=== PATIENT | male | born 1960 | race Asian ===

== ENCOUNTER 2017-05-17 16:11 | Inpatient (IN) | payer OTHER ==
[~2017-05-17] VITALS: Ht 180.3 cm; Wt 112.5 kg
[2017-05-17 17:26] LABS: BASOPHILS % (AUTO) 0.5 % (0.0-2.0); EOSINOPHILS # (AUTO) 0.2 /CMM (0.0-0.7); EOSINOPHILS % (AUTO) 2.8 % (0.0-6.0); HEMATOCRIT 50 % (39-51); HEMOGLOBIN 16.6 g/dL (13.5-17.5); LYMPHOCYTES # (AUTO) 1.5 /CMM (0.8-4.8); LYMPHOCYTES % (AUTO) 20.1 % (20.0-44.0); MEAN CORPUSCULAR HEMOGLOBIN 30 PG (26.0-33.0); MEAN CORPUSCULAR HGB CONC 33 g/dl (31.0-36.0); MEAN CORPUSCULAR VOLUME 92 fL (80-96); MONOCYTES # (AUTO) 0.9 /CMM (0.1-1.30); MONOCYTES % (AUTO) 11.9 % (2.0-12.0); NEUTROPHILS # (AUTO) 4.7 /CMM (1.8-8.9); NEUTROPHILS % (AUTO) 64.7 % (43.0-81.0); PLATELET COUNT (AUTO) 286 /CMM (150-450); RDW COEFFICIENT OF VARIATION 14.4 (11.5-15.0); RED BLOOD CELL COUNT(AUTO) 5.48 MIL/uL (4.5-6.0); WHITE BLOOD COUNT (AUTO) 7.3 K/uL (4.3-11.0)
[2017-05-17 17:47] LABS: CALCIUM, SERUM 8.6 mg/dL (8.5-10.1); CREATININE 1.4 mg/dL (0.6-1.3); TROPONIN I 0.365 ng/mL (0.00-0.056)
[2017-05-17 17:52] LABS: ALBUMIN 3.1 g/dL (3.4-5.0); BILIRUBIN,DIRECT 0.1 mg/dL (0.0-0.2); BILIRUBIN,TOTAL 0.8 mg/dL (0.2-1.0); TOTAL PROTEIN, SERUM 6.9 g/dL (6.4-8.2)
[2017-05-17 17:56] LABS: INR 2.17 (0.87-1.13); PROTHROMBIN TIME 22.7 SECS (9.5-12.7)
[2017-05-17] MEDS ORDERED: ASPIRIN 325 MG TABLET PO ONE (18:30)
[2017-05-17] MEDS ORDERED: FUROSEMIDE 20 MG/2 ML VIAL IV ONE (18:30)
[2017-05-17] MEDS ORDERED: FUROSEMIDE 20 MG/2 ML VIAL ONE (18:44)
[2017-05-17] MEDS ORDERED: ASPIRIN 325 MG TABLET ONE (18:44)
[2017-05-17] MEDS ORDERED: ASPI-1169 PO (18:47)
[2017-05-17] MEDS ORDERED: LEVO50TA8 PO (18:47)
[2017-05-17] MEDS ORDERED: WARF5TAB77 PO (18:47)
[2017-05-17] MEDS ORDERED: GLIM4TAB2 PO (18:47)
[2017-05-17] MEDS ORDERED: FURO20TA4 PO (18:47)
[2017-05-17] MEDS ORDERED: DIGO250T PO (18:47)
[2017-05-17] MEDS ORDERED: METF10002 PO (18:47)
[2017-05-17] MEDS ORDERED: OMEG1CAP55 PO (18:47)
[2017-05-17] MEDS ORDERED: SITA100T PO (18:47)
[2017-05-17] MEDS ORDERED: INSU100V7 SQ (18:47)
[2017-05-17] MEDS ORDERED: DAPA10TA PO (18:47)
[2017-05-17] MEDS ORDERED: VERA180T25 PO (18:47)
[2017-05-17] MEDS ORDERED: CARV25TA2 PO (18:47)
[2017-05-17] MEDS ORDERED: MULT1TAB73 PO (18:47)
[2017-05-17] MEDS ORDERED: LISI40TA4 PO (18:47)
[2017-05-17] MEDS ORDERED: MAGNESIUM HYDROXIDE 30 ML UDC PO PRN (20:00)
[2017-05-17] MEDS ORDERED: ZOLPIDEM TARTRATE 5 MG TABLET PO PRN (20:00)
[2017-05-17] MEDS ORDERED: ACETAMINOPHEN 325 MG TABLET PO PRN (20:00)
[2017-05-17] MEDS ORDERED: ONDANSETRON HCL/PF 4 MG/2 ML VIAL IVP PRN (20:00)
[2017-05-17] MEDS ORDERED: MAG HYDROX/AL HYDROX/SIMETH 30 ML UDC PO PRN (20:00)
[2017-05-17] MEDS ORDERED: DEXTROSE 50%-WATER 50 ML DISP.SYRIN IV PRN (20:00)
[2017-05-17] MEDS ORDERED: HYDROCODONE/APAP 10/325MG 1 EA TABLET PO PRN (20:00)
[2017-05-17] MEDS ORDERED: Z GUARD REMEDY 2 OZ OINT TP PRN (20:00)
[2017-05-17] MEDS ORDERED: HYDROCODONE/APAP 5/325MG 1 EACH TABLET PO PRN (20:00)
[2017-05-17 20:30] VITALS: BP 148/94
[2017-05-17] MEDS ORDERED: MORPHINE SULFATE INJ 4 MG/ML DISP.SYRIN IV PRN (21:00)
[2017-05-17] MEDS: FUROSEMIDE 40 MG/4 ML VIAL IV SCH (21:19)
[2017-05-17] MEDS: CARVEDILOL 12.5 MG TABLET PO SCH (21:20)
[2017-05-17] MEDS: NITROGLYCERIN PACKET 1 GM PACKET TOP SCH (21:21)
[2017-05-17] MEDS: BLOOD SUGAR DIAGNOSTIC 1 EACH STRIP VI SCH (22:21)
[2017-05-18] VITALS: BP 134/90
[2017-05-18 04:00] VITALS: BP 137/94
[2017-05-18] MEDS: NITROGLYCERIN PACKET 1 GM PACKET TOP SCH ×4 (05:08→22:18)
[2017-05-18 06:39] LABS: BASOPHILS % (AUTO) 0.3 % (0.0-2.0); EOSINOPHILS # (AUTO) 0.2 /CMM (0.0-0.7); EOSINOPHILS % (AUTO) 3.3 % (0.0-6.0); HEMATOCRIT 48 % (39-51); HEMOGLOBIN 16.1 g/dL (13.5-17.5); LYMPHOCYTES # (AUTO) 1.5 /CMM (0.8-4.8); LYMPHOCYTES % (AUTO) 23.7 % (20.0-44.0); MEAN CORPUSCULAR HEMOGLOBIN 31 PG (26.0-33.0); MEAN CORPUSCULAR HGB CONC 34 g/dl (31.0-36.0); MEAN CORPUSCULAR VOLUME 91 fL (80-96); MONOCYTES # (AUTO) 0.7 /CMM (0.1-1.30); MONOCYTES % (AUTO) 11.3 % (2.0-12.0); NEUTROPHILS # (AUTO) 4.1 /CMM (1.8-8.9); NEUTROPHILS % (AUTO) 61.4 % (43.0-81.0); PLATELET COUNT (AUTO) 293 /CMM (150-450); RED BLOOD CELL COUNT(AUTO) 5.28 MIL/uL (4.5-6.0); WHITE BLOOD COUNT (AUTO) 6.5 K/uL (4.3-11.0)
[2017-05-18 07:15] LABS: INR 2.61 (0.87-1.13); PROTHROMBIN TIME 27.4 SECS (9.5-12.7)
[2017-05-18 07:24] LABS: CALCIUM, SERUM 8.7 mg/dL (8.5-10.1); CREATININE 1.3 mg/dL (0.6-1.3); MAGNESIUM 1.9 mg/dL (1.8-2.4); PHOSPHORUS 4.1 mg/dL (2.5-4.9); POTASSIUM 3.7 mmol/L (3.5-5.1)
[2017-05-18] MEDS: BLOOD SUGAR DIAGNOSTIC 1 EACH STRIP VI SCH ×4 (07:35→22:22)
[2017-05-18 08:00] VITALS: BP 133/92
[2017-05-18] MEDS ORDERED: DIGOXIN 0.25 MG TABLET PO SCH (09:00)
[2017-05-18] MEDS ORDERED: Medication Not On Formulary EA (Omega-3 Acid Ethyl Esters (Lovaza) 2 GM) PO SCH (09:00)
[2017-05-18] MEDS: LEVOTHYROXINE SODIUM 50 MCG TABLET PO SCH (09:36)
[2017-05-18] MEDS: DOCUSATE SODIUM 100 MG CAPSULE PO SCH ×2 (09:36→17:00)
[2017-05-18] MEDS: MULTIVITAMINS,THERAGRAN 1 UDTAB TABLET PO SCH (09:36)
[2017-05-18] MEDS: ASPIRIN 81 MG TAB.CHEW PO SCH (09:36)
[2017-05-18] MEDS: LISINOPRIL (20MG) 20 MG TABLET PO SCH (09:37)
[2017-05-18] MEDS: FUROSEMIDE 40 MG/4 ML VIAL IV SCH ×2 (09:37→22:07)
[2017-05-18] MEDS: CARVEDILOL 12.5 MG TABLET PO SCH ×2 (09:37→22:17)
[2017-05-18] MEDS: PANTOPRAZOLE 40 MG TABLET.DR PO SCH (09:37)
[2017-05-18 12:00] VITALS: BP 126/98
[2017-05-18] MEDS: VERAPAMIL SR 180 MG TABLET.SA PO SCH (12:19)
[2017-05-18 16:03] VITALS: BP 128/93
[2017-05-18] MEDS ORDERED: WARFARIN SODIUM 5 MG TABLET PO SCH (17:00)
[2017-05-18] MEDS: INSULIN REGULAR, HUMAN 100 UNIT/ML 3 ML VIAL SQ PRN (17:44)
[2017-05-18 20:00] VITALS: BP 142/104
[2017-05-18] MEDS: ATORVASTATIN 10 MG TABLET PO SCH (22:16)
[2017-05-18] MEDS: *INSULIN REGULAR(HUMULIN R)HUM 100 UNIT/ML VIAL SQ PRN (22:28)
[2017-05-19] VITALS: BP 142/85
[2017-05-19 04:00] VITALS: BP_SYST 124; BP_SYST 128; BP_DIAS 78
[2017-05-19] MEDS: NITROGLYCERIN PACKET 1 GM PACKET TOP SCH ×3 (04:42→21:06)
[2017-05-19] MEDS: BLOOD SUGAR DIAGNOSTIC 1 EACH STRIP VI SCH ×4 (05:48→21:21)
[2017-05-19] MEDS: INSULIN REGULAR, HUMAN 100 UNIT/ML 3 ML VIAL SQ PRN ×3 (05:58→17:35)
[2017-05-19 08:00] VITALS: BP 143/85
[2017-05-19] MEDS: DOCUSATE SODIUM 100 MG CAPSULE PO SCH ×2 (10:14→17:00)
[2017-05-19] MEDS: PANTOPRAZOLE 40 MG TABLET.DR PO SCH (10:14)
[2017-05-19] MEDS: LEVOTHYROXINE SODIUM 50 MCG TABLET PO SCH (10:14)
[2017-05-19] MEDS: ASPIRIN 81 MG TAB.CHEW PO SCH (10:15)
[2017-05-19] MEDS: FUROSEMIDE 40 MG/4 ML VIAL IV SCH ×2 (10:16→21:02)
[2017-05-19] MEDS: CARVEDILOL 12.5 MG TABLET PO SCH ×2 (10:17→21:00)
[2017-05-19] MEDS: LISINOPRIL (20MG) 20 MG TABLET PO SCH (10:18)
[2017-05-19] MEDS: VERAPAMIL SR 180 MG TABLET.SA PO SCH (10:25)
[2017-05-19] MEDS: MULTIVITAMINS,THERAGRAN 1 UDTAB TABLET PO SCH (10:25)
[2017-05-19] MEDS ORDERED: DIGOXIN INJ 0.5 MG/2 ML AMPUL IV ONE (10:30)
[2017-05-19 16:01] VITALS: BP 146/80
[2017-05-19] MEDS ORDERED: WARFARIN SODIUM 5 MG TABLET PO SCH (17:00)
[2017-05-19 20:39] VITALS: BP 127/79
[2017-05-19] MEDS: ATORVASTATIN 10 MG TABLET PO SCH (21:21)
[2017-05-19] MEDS: *INSULIN REGULAR(HUMULIN R)HUM 100 UNIT/ML VIAL SQ PRN (21:22)
[2017-05-20 05:00] VITALS: BP 150/116
[2017-05-20] MEDS: NITROGLYCERIN PACKET 1 GM PACKET TOP SCH ×2 (05:17→13:29)
[2017-05-20] MEDS: BLOOD SUGAR DIAGNOSTIC 1 EACH STRIP VI SCH ×2 (06:32→12:09)
[2017-05-20] MEDS: PANTOPRAZOLE 40 MG TABLET.DR PO SCH (06:32)
[2017-05-20] MEDS: LEVOTHYROXINE SODIUM 50 MCG TABLET PO SCH (06:32)
[2017-05-20] MEDS: INSULIN REGULAR, HUMAN 100 UNIT/ML 3 ML VIAL SQ PRN ×2 (06:39→12:11)
[2017-05-20 08:00] VITALS: BP 151/99
[2017-05-20 08:10] LABS: INR 2.39 (0.87-1.13); PROTHROMBIN TIME 25.1 SECS (9.5-12.7)
[2017-05-20] MEDS: ASPIRIN 81 MG TAB.CHEW PO SCH (10:29)
[2017-05-20] MEDS: CARVEDILOL 12.5 MG TABLET PO SCH (10:31)
[2017-05-20] MEDS: MULTIVITAMINS,THERAGRAN 1 UDTAB TABLET PO SCH (10:31)
[2017-05-20] MEDS: VERAPAMIL SR 180 MG TABLET.SA PO SCH (10:32)
[2017-05-20] MEDS: DOCUSATE SODIUM 100 MG CAPSULE PO SCH (10:32)
[2017-05-20] MEDS: LISINOPRIL (20MG) 20 MG TABLET PO SCH (10:32)
[2017-05-20] MEDS: FUROSEMIDE 40 MG/4 ML VIAL IV SCH (10:33)
[2017-05-20] MEDS ORDERED: ATOR10TA PO (12:26)
[2017-05-20] MEDS ORDERED: FURO20TA4 PO (12:26)
[2017-05-20] MEDS ORDERED: DIGOXIN 0.25 MG TABLET PO SCH (13:00)
[2017-05-20 13:29] VITALS: BP 138/89
== END 2017-05-20 15:00 | disposition home or self-care (01) | DRG 194 ==
LOC: ER 16:15 → TELE 20:14 → MED 05-19 17:24
PROVIDERS: ADMIT Internal Medicine; ATTEND Internal Medicine
DX: I11.0 Hypertensive heart disease with heart failure (principal); J96.01 Acute respiratory failure with hypoxia; I21.4 Non-ST elevation (NSTEMI) myocardial infarction; Z79.899 Other long term (current) drug therapy; I50.23 Acute on chronic systolic (congestive) heart failure; Z86.73 Personal history of transient ischemic attack (TIA), and cerebral infarction without residual deficits; Z79.84 Long term (current) use of oral hypoglycemic drugs; Z79.82 Long term (current) use of aspirin; Z79.01 Long term (current) use of anticoagulants; I25.2 Old myocardial infarction; I42.9 Cardiomyopathy, unspecified; E11.9 Type 2 diabetes mellitus without complications; E66.9 Obesity, unspecified; Z68.34 Body mass index [BMI] 34.0-34.9, adult; E03.9 Hypothyroidism, unspecified; I48.0 Paroxysmal atrial fibrillation
CPT/HCPCS: 36415; 71045; 80048-TC; 80061-TC; 80076-TC; 80162-TC; 82962-TC; 83735-TC; 83880; 84100-TC; 84484-TC; 85025-TC; 85610-TC; 85730-TC; 87081-TC; A4606; J1160; J1815; J1940; Z7610

== ENCOUNTER 2021-05-14 18:37 | Emergency (ER) | payer OTHER ==
[~2021-05-14] VITALS: Ht 180.3 cm; Wt 97.5 kg
[~2021-05-14 18:37] MED LIST: ASPI-1169 PO; ATOR10TA PO; CARV25TA2 PO; DAPA10TA PO; DIGO250T PO; FURO20TA4 PO; GLIM4TAB37 PO; INSU100V7 SQ; LEVO50TA8 PO; LISI40TA13 PO; METF-442 PO; MULT-754 PO; OMEG1CAP55 PO; SITA100T PO; VERA180T25 PO; WARF5TAB PO
--- NOTE | 2021-05-14 20:15 | NUR ---
BIBWIFE C/O INSECT BITE A FEW NIGHTS AGO ON LEFT THIGH. HX OF DIABETES. CHANGED INTO A GOWN AND PLACED ON MONITOR. BREATHING EVEN AND UNLABORED ALL V/S STABLE.
[2021-05-14] MEDS ORDERED: DOXY100T2 PO (21:25)
--- NOTE | 2021-05-14 21:34 | NUR ---
Patient discharged to home in stable condition. Written and verbal after care instructions given. Patient verbalizes understanding of instruction.
[2021-05-14 21:53] VITALS: BP 147/87
== END 2021-05-14 21:53 | disposition home or self-care (01) ==
LOC: ER 18:45
DX: L03.116 Cellulitis of left lower limb (principal); E11.65 Type 2 diabetes mellitus with hyperglycemia; I11.0 Hypertensive heart disease with heart failure; I48.91 Unspecified atrial fibrillation; I25.2 Old myocardial infarction; Z79.01 Long term (current) use of anticoagulants; Z79.4 Long term (current) use of insulin; Z79.82 Long term (current) use of aspirin; Z79.2 Long term (current) use of antibiotics; Z79.899 Other long term (current) drug therapy
CPT/HCPCS: 82962-TC

== ENCOUNTER 2024-02-25 09:08 | Inpatient (IN) | payer OTHER ==
[2024-02-25] VITALS (40 sets, daily range): BP systolic 67–120; BP diastolic 50–77; TEMP 98.1–98.8; O2SAT 91–100
[~2024-02-25] VITALS: Ht 180.3 cm; Wt 113.4 kg
[~2024-02-25 09:08] MED LIST changes: +DOXY100T2 PO
[2024-02-25 09:32] LABS: BASOPHILS % (AUTO) 0.2 % (0.0-2.0); EOSINOPHILS # (AUTO) 0.3 K/uL (0.0-0.7); HEMATOCRIT 39 % (39-51); HEMOGLOBIN 12.7 g/dL (13.5-17.5); LYMPHOCYTES # (AUTO) 0.1 K/uL (0.8-4.8); LYMPHOCYTES % (AUTO) 0.7 % (20.0-44.0); MEAN CORPUSCULAR HEMOGLOBIN 29 PG (26.0-33.0); MEAN CORPUSCULAR HGB CONC 33 g/dl (31.0-36.0); MEAN CORPUSCULAR VOLUME 89 fL (80-96); MONOCYTES # (AUTO) 0.3 K/uL (0.1-1.30); MONOCYTES % (AUTO) 1.8 % (2.0-12.0); NEUTROPHILS # (AUTO) 13.7 K/uL (1.8-8.9); NEUTROPHILS % (AUTO) 95.3 % (43.0-81.0); PLATELET COUNT (AUTO) 196 K/uL (150-450); RED BLOOD CELL COUNT(AUTO) 4.35 MIL/uL (4.5-6.0); RED CELL DISTRIBUTION WIDTH 15.9 % (11.5-15.0); WHITE BLOOD COUNT (AUTO) 14.4 K/uL (4.3-11.0)
[2024-02-25] MEDS: IV NS 0.9% 1,000 ML BAG IV ONE (09:33)
[2024-02-25] MEDS: CEFEPIME 1 GM in IV D5W 50 ML IV ONE (09:42)
[2024-02-25] MEDS ORDERED: DILTIAZEM HCL 50 MG IV ONE (09:47)
[2024-02-25] MEDS ORDERED: Magnesium 1GM/D5W 100ML PREMIX 200 ML IV ONE (09:47)
[2024-02-25] MEDS ORDERED: ACETAMINOPHEN 650 MG/SUPP.RECT RC ONE (09:47)
[2024-02-25 09:49] LABS: ALANINE AMINOTRANSFERASE 102 U/L (12-78); ALBUMIN 2.3 g/dL (3.4-5.0); ALKALINE PHOSPHATASE 291 U/L (46-116); ASPARTATE AMINOTRANSFERASE 111 U/L (15-37); BILIRUBIN,DIRECT 1.1 mg/dL (0.0-0.2); BILIRUBIN,TOTAL 1.4 mg/dL (0.2-1.0); CALCIUM, SERUM 8.2 mg/dL (8.5-10.1); CARBON DIOXIDE 18 mmol/L (21-32); CHLORIDE 92 mmol/L (98-107); CREATININE 5.7 mg/dL (0.6-1.3); GLUCOSE 266 mg/dL (74-106); POTASSIUM 4.7 mmol/L (3.5-5.1); SODIUM SERUM 127 mmol/L (136-145); TOTAL PROTEIN, SERUM 6.5 g/dL (6.4-8.2)
[2024-02-25 09:52] LABS: UREA NITROGEN, BLOOD 119 mg/dL (7-18)
[2024-02-25] MEDS: DILTIAZEM HCL 50 MG IV IV ONE (09:53)
[2024-02-25 09:55] LABS: LACTIC ACID 2.5 mmol/L (0.4-2.0)
[2024-02-25] MEDS: ACETAMINOPHEN 120 MG/SUPP.RECT RC ONE (09:55)
[2024-02-25 10:10] LABS: PARTIAL THROMBOPLASTIN TIME 61.8 SEC (24.3-34.3); PROTHROMBIN TIME > 100.0 SECS (9.2-11.1)
[2024-02-25] MEDS: Magnesium 1GM/D5W 100ML PREMIX 200 ML IV ONE (10:10)
[2024-02-25] MEDS: ACETAMINOPHEN ES 500 MG TABLET PO ONE (10:13)
[2024-02-25 10:14] LABS: ABG BASE EXCESS -10.9 mmol/L (-2.0-3.0); ABG OXYGEN SATURATION 92.8 % (94.0-98.0); ABG PCO2 19.6 mmHg (35.0-48.0); ABG PH 7.394 (7.350-7.450); ABG TOTAL HEMOGLOBIN 12.4 G/dL (13.5-17.5); COHb 0.3 % (0.5-1.5); MetHb 0.2 % (0.0-1.5); O2Hb 92.3 % (94.0-97.0); SITE, ABG RIGHT RADIAL
[2024-02-25] MEDS: VANCOMYCIN 1 GM in IV D5W 250 ML IV ONE (10:20)
[2024-02-25] MEDS ORDERED: NOREPINEPHRINE 8 MG in IV NS 0.9% 250 ML IV ONE (11:30)
[2024-02-25] MEDS ORDERED: AMIODARONE 150 MG/3 ML VIAL IV ONE (11:30)
[2024-02-25] MEDS: NOREPINEPHRINE 8 MG in IV NS 0.9% 242 ML IV ONE (11:55)
[2024-02-25] MEDS: AMIODARONE 150 MG in IV D5W 100 ML IV ONE (12:02)
[2024-02-25] MEDS: AMIODARONE 450 MG in IV D5W 241 ML IV PRN ×2 (12:15→15:37)
[2024-02-25] MEDS ORDERED: PHENYLEPHRINE 100 MG in IV NS 0.9% 240 ML IV PRN (12:30)
[2024-02-25] MEDS ORDERED: IV NS 0.9% 1,000 ML IV PRN (12:30)
[2024-02-25] MEDS ORDERED: ONDANSETRON HCL/PF 4 MG/2 ML VIAL IVP PRN (12:30)
[2024-02-25] MEDS: PHYTONADIONE IV ONE (13:15)
[2024-02-25] MEDS: NS 0.9% IV ONE (13:15)
[2024-02-25] MEDS ORDERED: KETO15CR2 TP (13:39)
[2024-02-25] MEDS ORDERED: ATOR80TA PO (13:39)
[2024-02-25] MEDS ORDERED: ICOS1CAP PO (13:39)
[2024-02-25] MEDS ORDERED: SACU1TAB4 PO (13:39)
[2024-02-25] MEDS ORDERED: FENO134C PO (13:39)
[2024-02-25] MEDS ORDERED: INSU100V39 SQ (13:39)
[2024-02-25] MEDS ORDERED: LATA5DRO EACHEYE (13:39)
[2024-02-25] MEDS ORDERED: MULT-225 PO (13:39)
[2024-02-25] MEDS ORDERED: FURO-144 PO (13:39)
[2024-02-25] MEDS ORDERED: SEMA1PEN SQ (13:39)
[2024-02-25] MEDS ORDERED: GABA-532 PO (13:39)
[2024-02-25] MEDS ORDERED: DORZ10DR11 EACHEYE (13:39)
[2024-02-25] MEDS ORDERED: ERTU15TA PO (13:39)
[2024-02-25] MEDS ORDERED: INSU100I40 SQ (13:39)
[2024-02-25] MEDS ORDERED: DEXTROSE 50%-WATER 50 ML DISP.SYRIN IV PRN ×2 (15:00→21:30)
[2024-02-25] MEDS: NOREPINEPHRINE 8 MG in IV D5W 242 ML IV PRN (15:22)
[2024-02-25] MEDS: ACETAMINOPHEN 325 MG TABLET PO PRN (15:27)
[2024-02-25 16:10] LABS: CALCIUM, SERUM 7.4 mg/dL (8.5-10.1); CREATININE 5.2 mg/dL (0.6-1.3); POTASSIUM 4.4 mmol/L (3.5-5.1)
[2024-02-25] MEDS ORDERED: FUROSEMIDE 100 MG/10 ML VIAL IV ONE (17:00)
[2024-02-25] MEDS: FUROSEMIDE 40 MG/4 ML VIAL IV ONE (17:42)
[2024-02-25] MEDS: BLOOD SUGAR DIAGNOSTIC 1 EACH STRIP IN SCH (17:52)
[2024-02-25] MEDS: INSULIN REGULAR, HUMAN 100 UNIT/ML 3 ML VIAL SQ PRN (17:52)
[2024-02-25] MEDS: Sodium Bicarbonate 100 MEQ in IV NS 0.9% 1,000 ML IV SCH (18:07)
[2024-02-25] MEDS: NOREPINEPHRINE 32 MG in IV NS 0.9% 250 ML IV PRN (19:41)
[2024-02-25] MEDS: CEFEPIME 1 GM in IV D5W 50 ML IV SCH (22:00)
[2024-02-25] MEDS: BLOOD SUGAR DIAGNOSTIC 1 EACH STRIP VI SCH (22:42)
[2024-02-25] MEDS: *INSULIN REGULAR(HUMULIN R)HUM 100 UNIT/ML VIAL SQ PRN (22:55)
[2024-02-25 23:21] LABS: URINE TOTAL PROTEIN 392.4 mg/dL (0-11.9)
[2024-02-25 23:56] LABS: APPEARANCE,URINE CLOUDY (CLEAR); COLOR,URINE BROWN (YELLOW)
[2024-02-25 23:58] LABS: PROTEIN,URINE 1+ mg/dl (NEGATIVE)
[2024-02-25 23:59] LABS: BILIRUBIN,URINE SMALL (NEGATIVE); BLOOD, URINE LARGE Ery/uL (NEGATIVE); KETONES,URINE TRACE mg/dL (NEGATIVE); LEUKOCYTE ESTERASE ,URINE TRACE (NEGATIVE); NITRITE, URINE NEGATIVE (NEGATIVE); UGLUCOSE 250 MG/DL mg/dL (NEGATIVE)
[2024-02-26] VITALS (95 sets, daily range): BP systolic 68–146; BP diastolic 46–117; TEMP 98.1–98.7; O2SAT 95–100
[2024-02-26 00:06] LABS: ADD URINE CULTURE YES; BACTERIA,URINE 2+ /HPF (None Seen); MUCUS,URINE Moderate /LPF (None Seen); RBC,URINE TOO NUMEROUS TO COUN /HPF (0-2); SQUAMOUS EPITHELIAL CELL,UR None Seen /HPF (None Seen)
[2024-02-26 05:25] LABS: BASOPHILS # (AUTO) 0.1 K/uL (0.0-0.2); BASOPHILS % (AUTO) 0.3 % (0.0-2.0); EOSINOPHILS # (AUTO) 0.8 K/uL (0.0-0.7); EOSINOPHILS % (AUTO) 3.4 % (0.0-6.0); HEMATOCRIT 35 % (39-51); HEMOGLOBIN 11.6 g/dL (13.5-17.5); LYMPHOCYTES # (AUTO) 0.1 K/uL (0.8-4.8); LYMPHOCYTES % (AUTO) 0.6 % (20.0-44.0); MEAN CORPUSCULAR HEMOGLOBIN 30 PG (26.0-33.0); MEAN CORPUSCULAR HGB CONC 33 g/dl (31.0-36.0); MEAN CORPUSCULAR VOLUME 89 fL (80-96); MONOCYTES # (AUTO) 1.2 K/uL (0.1-1.30); MONOCYTES % (AUTO) 5.2 % (2.0-12.0); NEUTROPHILS # (AUTO) 20.8 K/uL (1.8-8.9); NEUTROPHILS % (AUTO) 90.5 % (43.0-81.0); PLATELET COUNT (AUTO) 175 K/uL (150-450); RED BLOOD CELL COUNT(AUTO) 3.92 MIL/uL (4.5-6.0); RED CELL DISTRIBUTION WIDTH 15.9 % (11.5-15.0)
[2024-02-26 05:29] LABS: INR 1.46 (0.91-1.10); PARTIAL THROMBOPLASTIN TIME 39.4 SEC (24.3-34.3); PROTHROMBIN TIME 15.1 SECS (9.2-11.1)
[2024-02-26 05:56] LABS: ALBUMIN 1.9 g/dL (3.4-5.0); BILIRUBIN,TOTAL 1.3 mg/dL (0.2-1.0); CALCIUM, SERUM 7.7 mg/dL (8.5-10.1); MAGNESIUM 2.8 mg/dL (1.8-2.4); PHOSPHORUS 4.2 mg/dL (2.5-4.9); POTASSIUM 4.1 mmol/L (3.5-5.1); TOTAL PROTEIN, SERUM 5.9 g/dL (6.4-8.2)
[2024-02-26 06:07] LABS: MONOCYTES % (MANUAL) 2 % (0-11.0); NEUTROPHILS % (MANUAL) 98 (42-76)
[2024-02-26 06:08] LABS: PLATELET ESTIMATE ADEQU
[2024-02-26] MEDS: INSULIN REGULAR, HUMAN 100 UNIT/ML 3 ML VIAL SQ PRN (07:47)
[2024-02-26] MEDS: MULTIVIT W/MINERALS 1 TAB TABLET PO SCH (12:43)
[2024-02-26] MEDS: WARFARIN SODIUM 5 MG TABLET PO SCH (16:50)
[2024-02-26] MEDS: LATANOPROST EYE DROP 0.005% 2.5 ML BOTTLE EACHEYE SCH (21:01)
[2024-02-26] MEDS: ATORVASTATIN 40 MG TABLET PO SCH (22:29)
[2024-02-27] VITALS (63 sets, daily range): BP systolic 87–157; BP diastolic 49–116; TEMP 98.1–101.2; O2SAT 93–100
[2024-02-27 05:20] LABS: INR 1.47 (0.91-1.10); PARTIAL THROMBOPLASTIN TIME 33.6 SEC (24.3-34.3); PROTHROMBIN TIME 15.2 SECS (9.2-11.1)
[2024-02-27 06:07] LABS: PTH, INTACT 76 pg/mL (15-65)
[2024-02-27] MEDS: FENOFIBRATE NANOCRYS (145 MG) 145 MG TABLET PO SCH (08:28)
[2024-02-27] MEDS: TIMOLOL MAL/DORZOLAM HCL OPHTH 10 ML BOTTLE EACHEYE SCH (08:31)
[2024-02-27 08:57] LABS: BASOPHILS % (AUTO) 0.2 % (0.0-2.0); EOSINOPHILS # (AUTO) 0.2 K/uL (0.0-0.7); EOSINOPHILS % (AUTO) 0.8 % (0.0-6.0); HEMATOCRIT 34 % (39-51); HEMOGLOBIN 11.2 g/dL (13.5-17.5); LYMPHOCYTES # (AUTO) 0.4 K/uL (0.8-4.8); LYMPHOCYTES % (AUTO) 1.8 % (20.0-44.0); MEAN CORPUSCULAR HEMOGLOBIN 29 PG (26.0-33.0); MEAN CORPUSCULAR HGB CONC 33 g/dl (31.0-36.0); MEAN CORPUSCULAR VOLUME 88 fL (80-96); MONOCYTES # (AUTO) 1.9 K/uL (0.1-1.30); MONOCYTES % (AUTO) 9.1 % (2.0-12.0); NEUTROPHILS # (AUTO) 18.6 K/uL (1.8-8.9); NEUTROPHILS % (AUTO) 88.1 % (43.0-81.0); PLATELET COUNT (AUTO) 158 K/uL (150-450); RED BLOOD CELL COUNT(AUTO) 3.84 MIL/uL (4.5-6.0); RED CELL DISTRIBUTION WIDTH 16.1 % (11.5-15.0); WHITE BLOOD COUNT (AUTO) 21.2 K/uL (4.3-11.0)
[2024-02-27 09:07] LABS: ALBUMIN 1.6 g/dL (3.4-5.0); BILIRUBIN,TOTAL 1.3 mg/dL (0.2-1.0); CALCIUM, SERUM 7.2 mg/dL (8.5-10.1); CREATININE 3.9 mg/dL (0.6-1.3); MAGNESIUM 2.8 mg/dL (1.8-2.4); PHOSPHORUS 3.1 mg/dL (2.5-4.9); POTASSIUM 4.1 mmol/L (3.5-5.1); TOTAL PROTEIN, SERUM 5.4 g/dL (6.4-8.2)
[2024-02-27 13:36] LABS: EOSINOPHILS % (MANUAL) 1 % (0-4); LYMPHOCYTES % (MANUAL) 5 % (16-48); MONOCYTES % (MANUAL) 4 % (0-11.0); NEUTROPHILS % (MANUAL) 90 (42-76)
[2024-02-27 13:37] LABS: OVALOCYTES 1+; PLATELET ESTIMATE ADEQUATE
[2024-02-27] MEDS: HEPARIN SODIUM, PORCINE 5000 UNITS/1 ML VIAL IV ONE (14:40)
[2024-02-27] MEDS: HEPARIN INFUSION/D5W 500 ML IV PRN (14:41)
[2024-02-27] MEDS: ATORVASTATIN 40 MG TABLET PO SCH (21:57)
[2024-02-28] VITALS (50 sets, daily range): BP systolic 81–170; BP diastolic 52–153; TEMP 97.7–98.4; O2SAT 91–99
[2024-02-28] MEDS: ZOLPIDEM TARTRATE 5 MG TABLET PO PRN (01:39)
[2024-02-28 04:40] LABS: BASOPHILS % (AUTO) 0.1 % (0.0-2.0); EOSINOPHILS # (AUTO) 0.2 K/uL (0.0-0.7); HEMATOCRIT 33 % (39-51); HEMOGLOBIN 11.1 g/dL (13.5-17.5); LYMPHOCYTES # (AUTO) 0.6 K/uL (0.8-4.8); LYMPHOCYTES % (AUTO) 3.2 % (20.0-44.0); MEAN CORPUSCULAR HEMOGLOBIN 30 PG (26.0-33.0); MEAN CORPUSCULAR HGB CONC 34 g/dl (31.0-36.0); MEAN CORPUSCULAR VOLUME 88 fL (80-96); MONOCYTES % (AUTO) 10.2 % (2.0-12.0); NEUTROPHILS # (AUTO) 16.6 K/uL (1.8-8.9); NEUTROPHILS % (AUTO) 85.5 % (43.0-81.0); PLATELET COUNT (AUTO) 173 K/uL (150-450); RED BLOOD CELL COUNT(AUTO) 3.75 MIL/uL (4.5-6.0); RED CELL DISTRIBUTION WIDTH 15.9 % (11.5-15.0); WHITE BLOOD COUNT (AUTO) 19.5 K/uL (4.3-11.0)
[2024-02-28 04:57] LABS: ALBUMIN 1.6 g/dL (3.4-5.0); BILIRUBIN,TOTAL 1.7 mg/dL (0.2-1.0); CALCIUM, SERUM 7.7 mg/dL (8.5-10.1); CREATININE 3.2 mg/dL (0.6-1.3); MAGNESIUM 2.9 mg/dL (1.8-2.4); POTASSIUM 3.5 mmol/L (3.5-5.1); TOTAL PROTEIN, SERUM 6.1 g/dL (6.4-8.2)
[2024-02-28 05:12] LABS: *SPE A/G RATIO 0.6 (0.7-1.7); *SPE ALPHA-1-GLOBULIN 0.3 g/dL (0.0-0.4); *SPE ALPHA-2-GLOBULIN 1.1 g/dL (0.4-1.0); *SPE BETA GLOBULIN 0.7 g/dL (0.7-1.3); *SPE GLOBULIN, TOTAL 3.3 g/dL (2.2-3.9); *SPE M-SPIKE Not Observed g/dL (Not Observed); *SPE PROTEIN TOTAL 5.3 g/dL (6.0-8.5); *SPEGAMMA GLOBULIN 1.2 g/dL (0.4-1.8)
[2024-02-28 05:46] LABS: ANISOCYTOSIS 1+; BAND % (MANUAL) 1 % (0.0-5.0); EOSINOPHILS % (MANUAL) 2 % (0-4); LYMPHOCYTES % (MANUAL) 6 % (16-48); MONOCYTES % (MANUAL) 6 % (0-11.0); NEUTROPHILS % (MANUAL) 85 (42-76); PLATELET ESTIMATE ADEQUATE
[2024-02-28 05:47] LABS: OVALOCYTES 1+
[2024-02-28] MEDS: LEVOTHYROXINE SODIUM 50 MCG TABLET PO SCH (07:34)
[2024-02-28] MEDS: FENOFIBRATE NANOCRYS (145 MG) 145 MG TABLET PO SCH (08:13)
[2024-02-28] MEDS: GLIMEPIRIDE 4 MG TABLET PO SCH (08:13)
[2024-02-28] MEDS: ASPIRIN 81 MG TAB.CHEW PO SCH (08:13)
[2024-02-28] MEDS: DILTIAZEM HCL CD 240 MG PO SCH (09:55)
[2024-02-28] MEDS: APIXABAN 2.5 MG TABLET PO SCH (09:56)
[2024-02-28] MEDS ORDERED: VANCOMYCIN 1.5 GM in IV D5W 500 ML IV SCH (10:00)
[2024-02-28] MEDS: DIGOXIN 0.25 MG TABLET PO SCH (12:25)
[2024-02-28] MEDS: CARVEDILOL 12.5 MG TABLET PO SCH (14:35)
[2024-02-28] MEDS: AMIODARONE 450 MG in IV D5W 241 ML IV PRN (16:41)
[2024-02-28 17:18] LABS: ABG BASE EXCESS -3.6 mmol/L (-2.0-3.0); ABG OXYGEN SATURATION 94.9 % (94.0-98.0); ABG PCO2 33.1 mmHg (35.0-48.0); ABG PH 7.405 (7.350-7.450); ABG PO2 73.7 mmHg (83.0-108.0); ABG TOTAL HEMOGLOBIN 13.3 G/dL (13.5-17.5); COHb 1.2 % (0.5-1.5); MetHb 0.2 % (0.0-1.5); O2Hb 93.6 % (94.0-97.0); SITE, ABG RIGHT RADIAL
[2024-02-28] MEDS: BUMETANIDE INJ 16 MG in IV NS 0.9% 16 ML IV ONE (18:37)
[2024-02-28] MEDS: PHENYLEPHRINE 100 MG in IV NS 0.9% 240 ML IV PRN (19:37)
[2024-02-28] MEDS: MEROPENEM 500 MG in IV NS 0.9% 50 ML IV SCH (21:18)
[2024-02-29] VITALS (94 sets, daily range): BP systolic 80–148; BP diastolic 47–131; TEMP 97.4–98.5; O2SAT 89–99
[2024-02-29 04:25] LABS: BASOPHILS % (AUTO) 0.2 % (0.0-2.0); EOSINOPHILS # (AUTO) 0.1 K/uL (0.0-0.7); EOSINOPHILS % (AUTO) 0.4 % (0.0-6.0); HEMATOCRIT 31 % (39-51); HEMOGLOBIN 10.2 g/dL (13.5-17.5); LYMPHOCYTES # (AUTO) 0.3 K/uL (0.8-4.8); LYMPHOCYTES % (AUTO) 1.3 % (20.0-44.0); MEAN CORPUSCULAR HEMOGLOBIN 30 PG (26.0-33.0); MEAN CORPUSCULAR HGB CONC 33 g/dl (31.0-36.0); MEAN CORPUSCULAR VOLUME 88 fL (80-96); MONOCYTES # (AUTO) 1.3 K/uL (0.1-1.30); MONOCYTES % (AUTO) 5.1 % (2.0-12.0); NEUTROPHILS # (AUTO) 23.6 K/uL (1.8-8.9); PLATELET COUNT (AUTO) 174 K/uL (150-450); RED BLOOD CELL COUNT(AUTO) 3.45 MIL/uL (4.5-6.0); RED CELL DISTRIBUTION WIDTH 16.2 % (11.5-15.0); WHITE BLOOD COUNT (AUTO) 25.3 K/uL (4.3-11.0)
[2024-02-29] MEDS: ACETAMINOPHEN 325 MG TABLET PO PRN (04:35)
[2024-02-29 04:53] LABS: BAND % (MANUAL) 1 % (0.0-5.0); LYMPHOCYTES % (MANUAL) 3 % (16-48); MONOCYTES % (MANUAL) 4 % (0-11.0); NEUTROPHILS % (MANUAL) 92 (42-76); PLATELET ESTIMATE ADEQUATE
[2024-02-29 04:54] LABS: ANISOCYTOSIS 1+
[2024-02-29 04:55] LABS: OVALOCYTES 1+
[2024-02-29 05:09] LABS: ALBUMIN 1.5 g/dL (3.4-5.0); BILIRUBIN,TOTAL 1.9 mg/dL (0.2-1.0); CALCIUM, SERUM 7.5 mg/dL (8.5-10.1); CREATININE 3.2 mg/dL (0.6-1.3); MAGNESIUM 2.8 mg/dL (1.8-2.4); PHOSPHORUS 3.9 mg/dL (2.5-4.9); POTASSIUM 3.9 mmol/L (3.5-5.1); TOTAL PROTEIN, SERUM 6.1 g/dL (6.4-8.2)
[2024-02-29] MEDS: AMIODARONE HCL 200 MG TABLET PO SCH (09:00)
[2024-02-29] MEDS: BUMETANIDE INJ 12 MG in IV NS 0.9% 72 ML IV ONE (09:12)
[2024-03-01] VITALS (53 sets, daily range): BP systolic 95–146; BP diastolic 53–116; TEMP 97.6–98.1; O2SAT 92–98
[2024-03-01 04:45] LABS: BASOPHILS % (AUTO) 0.1 % (0.0-2.0); EOSINOPHILS # (AUTO) 0.4 K/uL (0.0-0.7); EOSINOPHILS % (AUTO) 1.3 % (0.0-6.0); HEMATOCRIT 33 % (39-51); HEMOGLOBIN 10.8 g/dL (13.5-17.5); LYMPHOCYTES # (AUTO) 0.6 K/uL (0.8-4.8); MEAN CORPUSCULAR HEMOGLOBIN 29 PG (26.0-33.0); MEAN CORPUSCULAR HGB CONC 33 g/dl (31.0-36.0); MEAN CORPUSCULAR VOLUME 87 fL (80-96); MONOCYTES # (AUTO) 2.5 K/uL (0.1-1.30); MONOCYTES % (AUTO) 8.4 % (2.0-12.0); NEUTROPHILS # (AUTO) 25.7 K/uL (1.8-8.9); NEUTROPHILS % (AUTO) 88.2 % (43.0-81.0); PLATELET COUNT (AUTO) 186 K/uL (150-450); RED BLOOD CELL COUNT(AUTO) 3.78 MIL/uL (4.5-6.0); RED CELL DISTRIBUTION WIDTH 16.1 % (11.5-15.0); WHITE BLOOD COUNT (AUTO) 29.1 K/uL (4.3-11.0)
[2024-03-01 05:05] LABS: BILIRUBIN,TOTAL 1.5 mg/dL (0.2-1.0); CALCIUM, SERUM 7.7 mg/dL (8.5-10.1); CREATININE 2.9 mg/dL (0.6-1.3); MAGNESIUM 2.6 mg/dL (1.8-2.4); PHOSPHORUS 3.7 mg/dL (2.5-4.9); POTASSIUM 3.5 mmol/L (3.5-5.1); TOTAL PROTEIN, SERUM 6.3 g/dL (6.4-8.2)
[2024-03-01 05:09] LABS: ALBUMIN 1.4 g/dL (3.4-5.0)
[2024-03-01 05:33] LABS: EOSINOPHILS % (MANUAL) 1 % (0-4); LYMPHOCYTES % (MANUAL) 3 % (16-48); METAMYELOCYTES % 1 % (0-0); MONOCYTES % (MANUAL) 10 % (0-11.0); NEUTROPHILS % (MANUAL) 85 (42-76); PLATELET ESTIMATE ADEQUATE
[2024-03-01] MEDS ORDERED: ALBUMIN 25% 100 ML IV ONE (06:38)
[2024-03-01] MEDS: ALBUMIN 25% 25 GM in PREMIX 1 EA IV SCH (06:48)
[2024-03-01] MEDS: BUMETANIDE INJ 12 MG in IV NS 0.9% 72 ML IV ONE (08:36)
[2024-03-01] MEDS: DIGOXIN INJ 0.5 MG/2 ML AMPUL IV SCH (09:09)
[2024-03-01] MEDS ORDERED: NEPRO VAN 237 ML CAN PO PRN (16:30)
[2024-03-01] MEDS ORDERED: WARFARIN SODIUM 2.5 MG TABLET PO SCH (17:00)
[2024-03-01] MEDS: NEPRO VAN 237 ML CAN PO SCH (17:57)
[2024-03-02] VITALS (25 sets, daily range): BP systolic 88–158; BP diastolic 46–118; TEMP 97.7–98.7; O2SAT 88–98
[2024-03-02 04:53] LABS: BASOPHILS % (AUTO) 0.1 % (0.0-2.0); EOSINOPHILS # (AUTO) 0.1 K/uL (0.0-0.7); EOSINOPHILS % (AUTO) 0.5 % (0.0-6.0); HEMATOCRIT 32 % (39-51); HEMOGLOBIN 10.7 g/dL (13.5-17.5); LYMPHOCYTES # (AUTO) 0.4 K/uL (0.8-4.8); LYMPHOCYTES % (AUTO) 1.6 % (20.0-44.0); MEAN CORPUSCULAR HEMOGLOBIN 29 PG (26.0-33.0); MEAN CORPUSCULAR HGB CONC 34 g/dl (31.0-36.0); MEAN CORPUSCULAR VOLUME 87 fL (80-96); MONOCYTES # (AUTO) 1.9 K/uL (0.1-1.30); NEUTROPHILS # (AUTO) 21.1 K/uL (1.8-8.9); NEUTROPHILS % (AUTO) 89.8 % (43.0-81.0); PLATELET COUNT (AUTO) 177 K/uL (150-450); RED BLOOD CELL COUNT(AUTO) 3.65 MIL/uL (4.5-6.0); RED CELL DISTRIBUTION WIDTH 16.2 % (11.5-15.0); WHITE BLOOD COUNT (AUTO) 23.5 K/uL (4.3-11.0)
[2024-03-02 05:14] LABS: ALBUMIN 1.9 g/dL (3.4-5.0); BILIRUBIN,TOTAL 1.9 mg/dL (0.2-1.0); CALCIUM, SERUM 7.9 mg/dL (8.5-10.1); CREATININE 2.7 mg/dL (0.6-1.3); MAGNESIUM 2.2 mg/dL (1.8-2.4); PHOSPHORUS 3.2 mg/dL (2.5-4.9); POTASSIUM 3.3 mmol/L (3.5-5.1); TOTAL PROTEIN, SERUM 6.4 g/dL (6.4-8.2)
[2024-03-02] MEDS: MEROPENEM 1 G in IV NS 0.9% 100 ML IV SCH (08:34)
[2024-03-02 09:24] LABS: BAND % (MANUAL) 1 % (0.0-5.0); LYMPHOCYTES % (MANUAL) 4 % (16-48); MONOCYTES % (MANUAL) 7 % (0-11.0); NEUTROPHILS % (MANUAL) 88 (42-76)
[2024-03-02 09:26] LABS: PLATELET ESTIMATE ADEQUATE
[2024-03-02] MEDS: POTASSIUM CHLORIDE 20 MEQ TAB.PRT.SR PO ONE (11:27)
[2024-03-02 19:13] LABS: OCCULT BLOOD STOOL NEGATIVE (NEGATIVE)
[2024-03-02] MEDS ORDERED: CALCIUM CARBONATE 500 MG TAB.CHEW ONE (19:22)
[2024-03-02] MEDS: CALCIUM CARBONATE 500 MG TAB.CHEW PO PRN (19:24)
[2024-03-02] MEDS: ZOLPIDEM TARTRATE 5 MG TABLET PO PRN (20:45)
[2024-03-02] MEDS ORDERED: CEFEPIME 1 GM VIAL ONE (22:12)
[2024-03-02] MEDS: CEFEPIME 1 GM in IV D5W 50 ML IV SCH (22:38)
[2024-03-03] VITALS (16 sets, daily range): BP systolic 103–144; BP diastolic 60–96; TEMP 97.3–98; O2SAT 92–99
[2024-03-03 05:21] LABS: BASOPHILS % (AUTO) 0.1 % (0.0-2.0); EOSINOPHILS # (AUTO) 0.2 K/uL (0.0-0.7); EOSINOPHILS % (AUTO) 0.9 % (0.0-6.0); HEMATOCRIT 34 % (39-51); HEMOGLOBIN 11.4 g/dL (13.5-17.5); LYMPHOCYTES # (AUTO) 0.4 K/uL (0.8-4.8); LYMPHOCYTES % (AUTO) 2.1 % (20.0-44.0); MEAN CORPUSCULAR HEMOGLOBIN 29 PG (26.0-33.0); MEAN CORPUSCULAR HGB CONC 34 g/dl (31.0-36.0); MEAN CORPUSCULAR VOLUME 87 fL (80-96); MONOCYTES # (AUTO) 1.2 K/uL (0.1-1.30); MONOCYTES % (AUTO) 6.3 % (2.0-12.0); NEUTROPHILS # (AUTO) 17.6 K/uL (1.8-8.9); NEUTROPHILS % (AUTO) 90.6 % (43.0-81.0); PLATELET COUNT (AUTO) 216 K/uL (150-450); RED BLOOD CELL COUNT(AUTO) 3.89 MIL/uL (4.5-6.0); RED CELL DISTRIBUTION WIDTH 15.9 % (11.5-15.0); WHITE BLOOD COUNT (AUTO) 19.4 K/uL (4.3-11.0)
[2024-03-03 05:46] LABS: ALBUMIN 1.7 g/dL (3.4-5.0); BILIRUBIN,TOTAL 1.8 mg/dL (0.2-1.0); CREATININE 2.4 mg/dL (0.6-1.3); POTASSIUM 3.6 mmol/L (3.5-5.1); TOTAL PROTEIN, SERUM 6.7 g/dL (6.4-8.2)
[2024-03-03] MEDS: CEFEPIME 1 GM in IV D5W 50 ML IV SCH (09:00)
[2024-03-04] VITALS: BP 112/60; TEMP 97.9; O2SAT 98
[2024-03-04 00:32] VITALS: BP 112/60; TEMP 97.9; O2SAT 98
[2024-03-04 04:00] VITALS: BP 124/72; TEMP 97.5; O2SAT 98
[2024-03-04 05:20] VITALS: BP 124/72; TEMP 97.5; O2SAT 97
[2024-03-04 07:11] LABS: BASOPHILS % (AUTO) 0.2 % (0.0-2.0); EOSINOPHILS # (AUTO) 0.2 K/uL (0.0-0.7); HEMATOCRIT 37 % (39-51); LYMPHOCYTES # (AUTO) 0.4 K/uL (0.8-4.8); LYMPHOCYTES % (AUTO) 2.1 % (20.0-44.0); MEAN CORPUSCULAR HEMOGLOBIN 29 PG (26.0-33.0); MEAN CORPUSCULAR HGB CONC 33 g/dl (31.0-36.0); MEAN CORPUSCULAR VOLUME 88 fL (80-96); MONOCYTES # (AUTO) 1.1 K/uL (0.1-1.30); MONOCYTES % (AUTO) 5.9 % (2.0-12.0); NEUTROPHILS # (AUTO) 17.1 K/uL (1.8-8.9); NEUTROPHILS % (AUTO) 90.8 % (43.0-81.0); PLATELET COUNT (AUTO) 236 K/uL (150-450); RED BLOOD CELL COUNT(AUTO) 4.17 MIL/uL (4.5-6.0); RED CELL DISTRIBUTION WIDTH 16.1 % (11.5-15.0); WHITE BLOOD COUNT (AUTO) 18.8 K/uL (4.3-11.0)
[2024-03-04 07:48] LABS: ALBUMIN 1.7 g/dL (3.4-5.0); BILIRUBIN,TOTAL 1.5 mg/dL (0.2-1.0); CALCIUM, SERUM 8.1 mg/dL (8.5-10.1); CREATININE 2.3 mg/dL (0.6-1.3); MAGNESIUM 2.4 mg/dL (1.8-2.4); PHOSPHORUS 3.6 mg/dL (2.5-4.9); POTASSIUM 4.1 mmol/L (3.5-5.1); TOTAL PROTEIN, SERUM 7.2 g/dL (6.4-8.2)
[2024-03-04 08:00] VITALS: BP 150/84; TEMP 98.8; O2SAT 92
[2024-03-04 22:17] VITALS: BP 101/73; TEMP 97.8; O2SAT 96
[2024-03-05 06:51] LABS: BASOPHILS % (AUTO) 0.1 % (0.0-2.0); EOSINOPHILS # (AUTO) 0.1 K/uL (0.0-0.7); EOSINOPHILS % (AUTO) 0.3 % (0.0-6.0); HEMATOCRIT 35 % (39-51); HEMOGLOBIN 11.5 g/dL (13.5-17.5); LYMPHOCYTES # (AUTO) 0.2 K/uL (0.8-4.8); LYMPHOCYTES % (AUTO) 0.7 % (20.0-44.0); MEAN CORPUSCULAR HEMOGLOBIN 29 PG (26.0-33.0); MEAN CORPUSCULAR HGB CONC 33 g/dl (31.0-36.0); MEAN CORPUSCULAR VOLUME 87 fL (80-96); MONOCYTES # (AUTO) 0.7 K/uL (0.1-1.30); MONOCYTES % (AUTO) 2.4 % (2.0-12.0); NEUTROPHILS # (AUTO) 25.7 K/uL (1.8-8.9); NEUTROPHILS % (AUTO) 96.5 % (43.0-81.0); PLATELET COUNT (AUTO) 247 K/uL (150-450); RED BLOOD CELL COUNT(AUTO) 3.96 MIL/uL (4.5-6.0); RED CELL DISTRIBUTION WIDTH 15.8 % (11.5-15.0); WHITE BLOOD COUNT (AUTO) 26.6 K/uL (4.3-11.0)
[2024-03-05 07:06] LABS: ALBUMIN 1.8 g/dL (3.4-5.0); BILIRUBIN,TOTAL 1.6 mg/dL (0.2-1.0); CALCIUM, SERUM 8.4 mg/dL (8.5-10.1); CREATININE 2.2 mg/dL (0.6-1.3); MAGNESIUM 2.3 mg/dL (1.8-2.4); PHOSPHORUS 3.5 mg/dL (2.5-4.9); POTASSIUM 4.4 mmol/L (3.5-5.1); TOTAL PROTEIN, SERUM 7.4 g/dL (6.4-8.2)
[2024-03-05 08:00] VITALS: BP 108/65; TEMP 98.2; O2SAT 96
[2024-03-05 08:22] LABS: LYMPHOCYTES % (MANUAL) 2 % (16-48); MONOCYTES % (MANUAL) 1 % (0-11.0); NEUTROPHILS % (MANUAL) 97 (42-76); PLATELET ESTIMATE ADEQUATE
[2024-03-05 11:48] VITALS: BP 93/55; TEMP 98.2; O2SAT 92
[2024-03-05 16:00] VITALS: BP 96/57; TEMP 98.2; O2SAT 94
[2024-03-05 17:00] VITALS: BP 90/58
== END 2024-03-05 18:07 | DRG 720 ==
LOC: ER 09:23 → ICU 13:58 → TELE 03-03 10:16
PROVIDERS: ADMIT Nurse Practitioner Acute Care
PROC: 0JHN3XZ Insertion of Tunneled Vascular Access Device into Right Lower Leg Subcutaneous Tissue and Fascia, Percutaneous Approach (ICD-10-PCS; principal; 2024-02-25)
PROC: 06HM33Z Insertion of Infusion Device into Right Femoral Vein, Percutaneous Approach (ICD-10-PCS; 2024-02-25)
PROC: B54BZZA Ultrasonography of Right Lower Extremity Veins, Guidance (ICD-10-PCS; 2024-02-25)
DX: A41.59 Other Gram-negative sepsis (principal); N17.0 Acute kidney failure with tubular necrosis; J69.0 Pneumonitis due to inhalation of food and vomit; G93.41 Metabolic encephalopathy; R65.21 Severe sepsis with septic shock; I21.A1 Myocardial infarction type 2; E87.21 Acute metabolic acidosis; E11.22 Type 2 diabetes mellitus with diabetic chronic kidney disease; D64.9 Anemia, unspecified; B96.89 Other specified bacterial agents as the cause of diseases classified elsewhere; I48.91 Unspecified atrial fibrillation; Z79.01 Long term (current) use of anticoagulants; Z86.73 Personal history of transient ischemic attack (TIA), and cerebral infarction without residual deficits; I50.9 Heart failure, unspecified; I13.0 Hypertensive heart and chronic kidney disease with heart failure and stage 1 through stage 4 chronic kidney disease, or unspecified chronic kidney disease; N18.9 Chronic kidney disease, unspecified; I42.9 Cardiomyopathy, unspecified; Z79.85 Long-term (current) use of injectable non-insulin antidiabetic drugs; Z79.4 Long term (current) use of insulin; Z79.899 Other long term (current) drug therapy; Z79.82 Long term (current) use of aspirin; Z79.84 Long term (current) use of oral hypoglycemic drugs; E86.0 Dehydration; E87.1 Hypo-osmolality and hyponatremia; R79.1 Abnormal coagulation profile; K76.1 Chronic passive congestion of liver; G47.33 Obstructive sleep apnea (adult) (pediatric); I25.10 Atherosclerotic heart disease of native coronary artery without angina pectoris; Y95 Nosocomial condition; Z74.01 Bed confinement status; N20.2 Calculus of kidney with calculus of ureter; Z91.199 Patient's noncompliance with other medical treatment and regimen due to unspecified reason; Z87.442 Personal history of urinary calculi; N40.0 Benign prostatic hyperplasia without lower urinary tract symptoms; M89.8X9 Other specified disorders of bone, unspecified site; K80.20 Calculus of gallbladder without cholecystitis without obstruction; I25.2 Old myocardial infarction; K57.30 Diverticulosis of large intestine without perforation or abscess without bleeding; E11.65 Type 2 diabetes mellitus with hyperglycemia; N13.6 Pyonephrosis
CPT/HCPCS: 36415; 36600; 70450-TC; 71045-TC; 76770-TC; 80048-TC; 80053-TC; 80061-TC; 80076-TC; 81001; 82272-TC; 82550-TC; 82570-TC; 82803-TC; 82962-TC; 83605-TC; 83735-TC; 83970; 84100-TC; 84155; 84165; 84300-TC; 84484-TC; 85025-TC; 85652-TC; 85730-TC; 87040-TC; 87081-TC; 87086-TC; 87186-TC; 93307-TC; 94799-TC; 97110-TC; 97112-TC; 97116-TC; 97530-TC; 97535-TC; A4216; A4223; G0378; J0282; J0692; J1160; J1644; J1815; J1940; J2185; J3370; J3430; J3475; J3490; J7030; J7050; J7060; P9047